=== PATIENT | male | born 1990 | race Caucasian/White ===

== ENCOUNTER 2020-05-08 13:47 | Emergency (ER) | payer OTHER ==
[~2020-05-08] VITALS: Ht 190.5 cm; Wt 106.1 kg
[2020-05-08] MEDS ORDERED: HM I200C PO (14:11)
[2020-05-08] MEDS ORDERED: ACET-683 PO (14:11)
[2020-05-08] MEDS ORDERED: KETOROLAC 60MG 2ML VIAL IM ONE (16:05)
[2020-05-08] MEDS ORDERED: methocarbamoL 750 MG TAB PO ONE (16:05)
[2020-05-08] MEDS ORDERED: KETO10TAB PO (16:40)
[2020-05-08] MEDS ORDERED: ROBA750T4 PO (16:40)
[2020-05-08 16:51] VITALS: BP 121/74
== END 2020-05-08 16:52 | disposition home or self-care (01) ==
LOC: M ED 13:47
DX: M54.42 Lumbago with sciatica, left side (principal)
CPT/HCPCS: 96372; 99283; J1885